=== PATIENT | male | born 1995 | race Caucasian/White ===

== ENCOUNTER 2024-12-26 10:42 | Emergency (ER) | payer OTHER ==
[~2024-12-26] VITALS: Ht 182.9 cm; Wt 160.0 kg
[2024-12-26 10:47] VITALS: O2SAT 99
[2024-12-26] MEDS ORDERED: IBUP-2030 MT (12:42)
[2024-12-26 12:49] VITALS: BP 138/80; PULSE 75; RESP 16; TEMP 36.8; O2SAT 99
== END 2024-12-26 12:50 | disposition home or self-care (01) ==
LOC: ER 10:42
DX: R07.89 Other chest pain (principal); V49.9XXA Car occupant (driver) (passenger) injured in unspecified traffic accident, initial encounter; Y93.89 Activity, other specified; Y92.410 Unspecified street and highway as the place of occurrence of the external cause; Y99.8 Other external cause status
CPT/HCPCS: 71101; 93005; 99283